=== PATIENT | female | born 1940 | race Caucasian/White ===

== ENCOUNTER 2018-12-16 12:36 | Emergency (ER) | payer MEDICARE, OTHER ==
[~2018-12-16] VITALS: Ht 154.9 cm; Wt 48.1 kg
[~2018-12-16 12:36] MED LIST: LEVO88TA2 PO
--- NOTE | 2018-12-16 13:20 | NUR ---
Patient discharged to home in stable conditon. Written and verbal after care instructions given. Patient verbalizes understanding of instructions.
== END 2018-12-16 13:21 | disposition home or self-care (01) ==
LOC: ER 12:36
DX: B35.8 Other dermatophytoses (principal); Z88.0 Allergy status to penicillin; Z79.899 Other long term (current) drug therapy
CPT/HCPCS: A4663